=== PATIENT | male | born 1990 | race Caucasian/White ===

== ENCOUNTER 2016-02-28 10:36 | Emergency (ER) | payer BC ==
[2016-02-28 10:43] VITALS: BP 129/64
--- NOTE | 2016-02-28 11:06 | UC ---
Skin Complaint HPI - HPI Summary HPI Summary: 25 yo male with rash around recent tattoo site right upper arm crusty has not been using neosporin was using aquaphor and later esperanza butter - History of Current Complaint Chief Complaint: UCSkin Time Seen by Provider: 02/28/16 10:39 Stated Complaint: SKIN COMPLAINT Hx Obtained From: Patient Onset/Duration: Gradual Onset, Lasting Days Timing: Constant Onset Severity: Mild Current Severity: Mild Pain Intensity: 0 Pain Scale Used: 0-10 Numeric Location: Discrete Character: Pruritus - very mild, Redness, Painful - slight Aggravating: Nothing Alleviating: Nothing Associated Signs & Symptoms: Positive: Rash. Negative: Nausea, Vomiting, Numbness, Thirst, Diaphoresis, Weakness, Pallor, Shivering, Difficulty Breathing , Fever, Chills, Cough, Wheezing, Chest Pain, Hoarseness, Throat Tightening, Abdominal Pain, Syncope, Drainage, Bruising, Tenderness, Red Streaks, Joint Swelling - Allergy/Home Medications Allergies/Adverse Reactions: Allergies Allergy/AdvReac Type Severity Reaction Status Date / Time No Known Allergies Allergy Verified 07/20/12 15:11 Review of Systems Constitutional: Negative Skin: Rash Eyes: Negative ENT: Negative Respiratory: Negative Cardiovascular: Negative Gastrointestinal: Negative Genitourinary: Negative Motor: Negative Neurovascular: Negative Musculoskeletal: Negative Neurological: Negative Psychological: Negative All Other Systems Reviewed And Are Negative: Yes PMH/Surg Hx/FS Hx/Imm Hx Previously Healthy: Yes Endocrine History Of: Denies: Diabetes, Thyroid Disease Cardiovascular History Of: Denies: Cardiac Disorders, Hypertension Respiratory History Of: Denies: COPD, Asthma GI/ History Of: Denies: Ulcer - Surgical History Surgical History: None - Family History Known Family History: Negative: Cardiac Disease, Hypertension, Diabetes - Social History Alcohol Use: Occasionally Substance Use Type: None Smoking Status (MU): Never Smoked Tobacco - Immunization History Most Recent Tetanus Shot: Unsure Physical Exam Triage Information Reviewed: Yes Appearance: Well-Appearing, No Pain Distress Vital Signs: Initial Vital Signs Temp 98.8 F 02/28/16 10:39 Pulse 90 02/28/16 10:39 Resp 16 02/28/16 10:39 BP 129/64 02/28/16 10:39 Pulse Ox 98 02/28/16 10:39 Vital Signs Reviewed: Yes Eyes: Positive: Conjunctiva Clear ENT: Positive: Pharynx normal. Negative: Nasal congestion, Nasal drainage, TMs normal Neck: Positive: Supple, Nontender, No Lymphadenopathy Respiratory: Positive: Lungs clear, Normal breath sounds, No respiratory distress, No accessory muscle use Cardiovascular: Positive: RRR, No Murmur Neurological: Positive: Alert Psychological Exam: Normal Course/Dx - Diagnoses Provider Diagnoses: impetigo Discharge - Discharge Plan Condition: Stable Disposition: HOME Prescriptions: DOXYcycline CAP(*) [DOXYcycline 100MG CAP(*)] 100 mg PO BID #20 cap Mupirocin 2% OINT* [Bactroban 2 % Oint*] 1 applic TOPICAL TID #1 tube Patient Education Materials: Impetigo (ED) Referrals: Foster Rdz MD [Primary Care Provider] - 5 Days (if not improved) Additional Instructions: a culture is pending Images Front/Back of Body, Lg ([place]): 1 - multiple impetiginous lesions//crusted. some ulcerated
== END 2016-02-28 11:04 | disposition home or self-care (01) ==
LOC: UCEAST 10:36
DX: L01.00 Impetigo, unspecified (principal)
CPT/HCPCS: 87070; 87077; 87186; 87205; 87640; 87641; 99212; G0463

== ENCOUNTER 2016-03-14 12:07 | Emergency (ER) | payer BC ==
[2016-03-14 13:32] VITALS: BP 118/58
--- NOTE | 2016-03-14 14:48 | UC ---
Kal Luong Karl, scribed for Fanny Thompson DO on 03/14/16 at 1352 . Eye Complaint HPI - HPI Summary HPI Summary: Pt is a 25 y/o male that presents to [facility] c/o a problem with his left eye. Pt reported that his left eye became itchy, red and painful to the touch last night and is aggravated when putting in his contracts. Pt also has a purulent discharge and reported blurry vision comes and goes. Pt also voiced a concern that he may have chlamydia in his eye because he has been having unprotected sex with a new partner for the last 3 months. He would like to be tested for clamydia. Pt denied fever, chills, CP, SOB , urinary problems, myalgia, rash. Hx: unprotected sex for the last 3 months. - History of Current Complaint Chief Complaint: UCEye Stated Complaint: POSSIBLE PINK EYE Time Seen by Provider: 03/14/16 13:38 Hx Obtained From: Patient Onset/Duration: Gradual Onset, Lasting Hours, Still Present Timing: Constant Severity Initially: Mild Severity Currently: Mild Location of Injury: Conjunctiva Aggravating Factor(s): Light, Contact Lens Alleviating Factor(s): Nothing Associated Signs And Symptoms: Positive: Photophobia - mild, Drainage (Purulent) , Vision Impairment Left. Negative: Fever - Risk Factors Penetrating Injury Risk Factor: Negative - Allergies/Home Medications Allergies/Adverse Reactions: Allergies Allergy/AdvReac Type Severity Reaction Status Date / Time No Known Allergies Allergy Verified 07/20/12 15:11 PMH/Surg Hx/FS Hx/Imm Hx Previously Healthy: Yes Endocrine History Of: Denies: Diabetes, Thyroid Disease Cardiovascular History Of: Denies: Cardiac Disorders, Hypertension Respiratory History Of: Denies: COPD, Asthma GI/ History Of: Denies: Ulcer - Surgical History Surgical History: None - Family History Known Family History: Negative: Cardiac Disease, Hypertension, Diabetes - Social History Occupation: Employed Full-time Alcohol Use: Rare Substance Use Type: None Smoking Status (MU): Never Smoked Tobacco - Immunization History Most Recent Tetanus Shot: Unsure Review of Systems Constitutional: Negative Skin: Negative Eyes: Blurred Vision - minimal, Drainage - mild purulent, Eye Redness ENT: Negative Respiratory: Negative Cardiovascular: Negative Gastrointestinal: Negative Genitourinary: Negative Motor: Negative Neurovascular: Negative Musculoskeletal: Negative Neurological: Negative Psychological: Negative All Other Systems Reviewed And Are Negative: Yes Physical Exam Triage Information Reviewed: Yes Appearance: Well-Appearing, No Pain Distress, Well-Nourished Vital Signs: Initial Vital Signs Temp 97.9 F 03/14/16 13:28 Pulse 43 03/14/16 13:28 Resp 16 03/14/16 13:28 BP 118/58 03/14/16 13:28 Pulse Ox 100 03/14/16 13:28 Vital Signs Reviewed: Yes Eye Exam: Other - erythematous Eyes: Positive: Conjunctiva Inflamed, Discharge - mild purulent ENT: Positive: Hearing grossly normal, Pharynx normal, TMs normal. Negative: Tonsillar swelling, Tonsillar exudate, Muffled/hoarse voice Neck exam: Normal Neck: Positive: Supple Respiratory: Positive: Lungs clear, Normal breath sounds, No respiratory distress, No accessory muscle use Cardiovascular: Positive: RRR, No Murmur Musculoskeletal Exam: Normal Neurological: Positive: Alert, Muscle Tone Normal Psychological Exam: Normal Psychological: Positive: Age Appropriate Behavior Skin Exam: Normal - warm, dry, normal color UC Physical Exam Vital Signs On Initial Exam: Initial Vitals Temp Pulse Resp BP Pulse Ox 97.9 F 43 16 118/58 100 03/14/16 13:28 03/14/16 13:28 03/14/16 13:28 03/14/16 13:28 03/14/16 13:28 - Eye Exam EOMI: Yes Eye Exam: right eye: no evidence of infection or trauma, left eye: conjunctival inflammation, cornea clear, drainage, bilateral eye: PERRL, visual field normal Visual Acuity Right Eye: 20/25 Visual Acuity Left Eye: 20/40 Eye Complaint Course/Dx - Course Course Of Treatment: Pt is concerned about chlamydia in his eye because he has been having unsafe sex and he is suspicious that his partner may have an STD. Therefore, he would like to be tested for chlamydia and gonorrhea. - Differential Dx/Diagnosis Differential Diagnosis/HQI/PQRI: Conjunctivitis Provider Diagnoses: conjunctivits, std exposure Discharge - Discharge Plan Condition: Stable Disposition: HOME Prescriptions: Tobramycin-Dexamethasone [Tobradex] 2 shanelle OP QID #1 bottle Patient Education Materials: Sexually Transmitted Diseases (ED), Conjunctivitis (ED) Referrals: Foster Rdz MD [Primary Care Provider] - If Needed Additional Instructions: GO HOME, REMOVE YOUR CONTACT LENS AND THROW THEM AWAY ALONG WITH YOUR OLD CASE. WEAR GLASSES ONLY UNTIL YOU HAVE COMPLETED THE COURSE OF DROPS AND YOUR SYMPTOMS ARE ALL RESOLVED. WE ARE TESTING YOU FOR GONORRHEA AND CLAMYDIA. YOU WILL BE CALLED IF THE TEST COMES BACK POSITIVE. The documentation as recorded by the kelliibKal chou Karl accurately reflects the service I personally performed and the decisions made by me, Fanny Thompson DO.
== END 2016-03-14 14:36 | disposition home or self-care (01) ==
LOC: UCEAST 12:07
DX: H10.9 Unspecified conjunctivitis (principal); Z20.2 Contact with and (suspected) exposure to infections with a predominantly sexual mode of transmission
CPT/HCPCS: 87491; 87591; 99212; G0463